=== PATIENT | female | born 1940 | race Caucasian/White ===

== ENCOUNTER 2022-08-13 10:41 | Emergency (ER) | payer OTHER ==
[~2022-08-13] VITALS: Ht 167.6 cm; Wt 90.0 kg
[2022-08-13] MEDS ORDERED: ASPirin 81 mg TAB PO ONE (11:00)
[2022-08-13 11:53] LABS: Bilirubin, Total 0.3 mg/dL (0.2-1.0); Calcium 9.1 mg/dL (8.5-10.1); Potassium 3.9 mmol/L (3.5-5.1); Total Protein 6.8 g/dL (6.4-8.2)
[2022-08-13 11:54] LABS: Albumin 3.4 g/dL (3.4-5.0); Magnesium 2.2 mg/dL (1.6-2.6)
[2022-08-13 12:42] LABS: Basophils # (auto) 0 10 ^3/uL (0-0.2); Eosinophils # (auto) 0.1 10 ^3/uL (0-0.8); Eosinophils % (auto) 1.3 % (0.0-7.0); Hematocrit 41.8 % (36.0-46.0); Hemoglobin 14.2 g/dL (12.2-16.2); Lymphocytes # (auto) 1.1 10 ^3/uL (0.4-5.4); Lymphocytes % (auto) 25.2 % (10.0-50.0); Mean Corpuscular Hemoglobin 32.3 pg (28.0-32.0); Mean Corpuscular Hgb Conc. 33.9 g/dL (32.0-36.0); Mean Corpuscular Volume 95.2 fL (80.0-100.0); Monocytes # (auto) 0.7 10 ^3/uL (0-1.3); Monocytes % (auto) 15.9 % (0.0-12.0); Neutrophils # (auto) 2.4 10 ^3/uL (1.6-8.6); Neutrophils % (auto) 56.6 % (37.0-80.0); Nucleated Red Blood Cells % 0.1 %; Red Blood Cells 4.39 10^6/uL (4.0-5.20); White Blood Cell 4.3 10^3/uL (4.4-10.8)
[2022-08-13 14:01] VITALS: BP 136/64
== END 2022-08-13 14:02 | disposition home or self-care (01) ==
LOC: ER 10:41
DX: R07.89 Other chest pain (principal); I10 Essential (primary) hypertension; Z90.710 Acquired absence of both cervix and uterus; Z90.89 Acquired absence of other organs; Z88.8 Allergy status to other drugs, medicaments and biological substances
CPT/HCPCS: 36415; 71046; 80053; 83735; 83880; 84484; 85025; 85379; 93005

== ENCOUNTER 2023-04-22 12:48 | Emergency (ER) | payer OTHER ==
[~2023-04-22] VITALS: Ht 170.2 cm; Wt 82.0 kg
[2023-04-22 13:56] LABS: Basophils # (auto) 0 10 ^3/uL (0-0.2); Basophils % (auto) 0.5 % (0.0-2.0); Eosinophils # (auto) 0.1 10 ^3/uL (0-0.8); Eosinophils % (auto) 0.8 % (0.0-7.0); Hematocrit 44.6 % (36.0-46.0); Hemoglobin 14.9 g/dL (12.2-16.2); Lymphocytes # (auto) 1.2 10 ^3/uL (0.4-5.4); Lymphocytes % (auto) 14.3 % (10.0-50.0); Mean Corpuscular Hgb Conc. 33.4 g/dL (32.0-36.0); Mean Corpuscular Volume 99.1 fL (80.0-100.0); Monocytes # (auto) 0.8 10 ^3/uL (0-1.3); Monocytes % (auto) 10.2 % (0.0-12.0); Neutrophils # (auto) 6.2 10 ^3/uL (1.6-8.6); Neutrophils % (auto) 74.2 % (37.0-80.0); Nucleated Red Blood Cells % 0.3 %; Red Blood Cells 4.51 10^6/uL (4.0-5.20); White Blood Cell 8.4 10^3/uL (4.4-10.8)
[2023-04-22 14:15] LABS: INR 1.05 (0.9-1.15); Partial Thromboplastin Time 36.9 SEC (24.5-34.5)
[2023-04-22 14:19] LABS: Albumin 3.7 g/dL (3.4-5.0); Calcium 9.6 mg/dL (8.5-10.1); Potassium 4.5 mmol/L (3.5-5.1)
[2023-04-22 14:22] LABS: BUN/Creatinine Ratio 26.4 (10.0-20.0); Bilirubin, Total 0.3 mg/dL (0.2-1.0); Total Protein 7.6 g/dL (6.4-8.2)
[2023-04-22] MEDS ORDERED: HYDROcodone-ACET 10/325MG TAB PO ONE (15:00)
[2023-04-22] MEDS ORDERED: TRAM50TA2 PO (15:04)
[2023-04-22 15:53] VITALS: BP 157/76; PULSE 62; RESP 17; TEMP 97.9; O2SAT 94
== END 2023-04-22 15:55 | disposition home or self-care (01) ==
LOC: EDBD 12:48 → ER 12:48
DX: S09.90XA Unspecified injury of head, initial encounter (principal); M54.59 Other low back pain; I10 Essential (primary) hypertension; Z88.8 Allergy status to other drugs, medicaments and biological substances; Z79.1 Long term (current) use of non-steroidal anti-inflammatories (NSAID); Z90.89 Acquired absence of other organs; Z90.710 Acquired absence of both cervix and uterus; Z98.890 Other specified postprocedural states; W18.39XA Other fall on same level, initial encounter; Y93.89 Activity, other specified; Y92.89 Other specified places as the place of occurrence of the external cause; Y99.8 Other external cause status
CPT/HCPCS: 36415; 70450; 72100; 80053; 85025; 85610; 85730

== ENCOUNTER 2023-04-30 10:23 | Emergency (ER) | payer OTHER ==
[~2023-04-30] VITALS: Ht 167.6 cm; Wt 87.2 kg
[~2023-04-30 10:23] MED LIST: TRAM50TA2 PO
[2023-04-30] MEDS ORDERED: SODIUM CHLORIDE 0.9% 1,000 ML IV ONE (11:15)
[2023-04-30 11:33] LABS: Basophils # (auto) 0 10 ^3/uL (0-0.2); Basophils % (auto) 0.6 % (0.0-2.0); Eosinophils # (auto) 0.1 10 ^3/uL (0-0.8); Eosinophils % (auto) 0.8 % (0.0-7.0); Hematocrit 43.5 % (36.0-46.0); Hemoglobin 14.5 g/dL (12.2-16.2); Lymphocytes # (auto) 1.1 10 ^3/uL (0.4-5.4); Lymphocytes % (auto) 15.4 % (10.0-50.0); Mean Corpuscular Hemoglobin 31.8 pg (28.0-32.0); Mean Corpuscular Hgb Conc. 33.4 g/dL (32.0-36.0); Mean Corpuscular Volume 95.2 fL (80.0-100.0); Monocytes # (auto) 0.7 10 ^3/uL (0-1.3); Monocytes % (auto) 9.7 % (0.0-12.0); Neutrophils # (auto) 5.5 10 ^3/uL (1.6-8.6); Neutrophils % (auto) 73.5 % (37.0-80.0); Nucleated Red Blood Cells % 0.2 %; Red Blood Cells 4.58 10^6/uL (4.0-5.20); Red Cell Distribution Width 14.7 % (11.8-14.3); White Blood Cell 7.4 10^3/uL (4.4-10.8)
[2023-04-30 11:51] LABS: Calcium 9.2 mg/dL (8.5-10.1); Magnesium 2.4 mg/dL (1.6-2.6); Potassium 4.4 mmol/L (3.5-5.1)
[2023-04-30 11:54] LABS: Albumin 3.6 g/dL (3.4-5.0)
[2023-04-30 11:57] LABS: BUN/Creatinine Ratio 26.5 (10.0-20.0); Bilirubin, Total 0.4 mg/dL (0.2-1.0); Total Protein 6.8 g/dL (6.4-8.2)
[2023-04-30 12:17] LABS: INR 1.08 (0.9-1.15); Partial Thromboplastin Time 35.2 SEC (24.5-34.5); Prothrombin Time 11.3 sec (9.3-11.8)
[2023-04-30] MEDS: METOPROLOL TARTRATE 1MG/1ML-5ML VIAL IV SCH ×3 (13:30→13:40)
[2023-04-30 14:01] VITALS: BP 140/62; TEMP 98.3
[2023-04-30 15:51] VITALS: PULSE 68; RESP 18; O2SAT 96
== END 2023-04-30 16:30 | disposition home or self-care (01) ==
LOC: ER 10:23 → EDBD 10:23 → ER 16:12
DX: R00.2 Palpitations (principal); I48.91 Unspecified atrial fibrillation; K21.9 Gastro-esophageal reflux disease without esophagitis; I10 Essential (primary) hypertension; Z88.8 Allergy status to other drugs, medicaments and biological substances; Z90.710 Acquired absence of both cervix and uterus; Z90.89 Acquired absence of other organs; Z88.7 Allergy status to serum and vaccine
CPT/HCPCS: 36415; 71045; 80053; 83735; 83880; 84443; 84484; 85025; 85379; 85610; 85730; 93005; 96361; 96374; 99285; J7030

== ENCOUNTER 2023-05-10 17:05 | Emergency (ER) | payer OTHER ==
[~2023-05-10] VITALS: Ht 167.6 cm; Wt 86.3 kg
[2023-05-10 17:41] LABS: Basophils # (auto) 0.1 10 ^3/uL (0-0.2); Basophils % (auto) 0.7 % (0.0-2.0); Eosinophils # (auto) 0.1 10 ^3/uL (0-0.8); Eosinophils % (auto) 1.9 % (0.0-7.0); Hematocrit 44.8 % (36.0-46.0); Lymphocytes % (auto) 26.5 % (10.0-50.0); Mean Corpuscular Hemoglobin 31.6 pg (28.0-32.0); Mean Corpuscular Hgb Conc. 33.5 g/dL (32.0-36.0); Mean Corpuscular Volume 94.3 fL (80.0-100.0); Monocytes # (auto) 0.7 10 ^3/uL (0-1.3); Monocytes % (auto) 9.7 % (0.0-12.0); Neutrophils # (auto) 4.7 10 ^3/uL (1.6-8.6); Neutrophils % (auto) 61.2 % (37.0-80.0); Nucleated Red Blood Cells % 0.1 %; Red Blood Cells 4.75 10^6/uL (4.0-5.20); Red Cell Distribution Width 14.7 % (11.8-14.3); White Blood Cell 7.6 10^3/uL (4.4-10.8)
[2023-05-10 18:00] LABS: Alanine Aminotransferase 22 U/L (7-40); Albumin 4.5 g/dL (3.2-4.8); Alkaline Phosphatase 112 U/L (46-116); Anion Gap 4.3 (5-15); Blood Urea Nitrogen 29 mg/dL (9-23); Calcium 10.3 mg/dL (8.5-10.1); Carbon Dioxide 27.7 mmol/L (20-30); Chloride 106 mmol/L (98-107); Glucose 100 mg/dL (74-106); Magnesium 2.2 mg/dL (1.6-2.6); Potassium 4.2 mmol/L (3.5-5.1); Sodium 138 mmol/L (136-145)
[2023-05-10 18:01] LABS: Aspartate Aminotransferase 16 U/L (13-40); Bilirubin, Total 0.5 mg/dL (0.2-1.0); Total Protein 7.2 g/dL (5.7-8.2)
[2023-05-10 19:45] LABS: Urine Bacteria FEW /hpf (None Seen); Urine Blood Negative /uL (Negative); Urine Clarity Clear (Clear); Urine Color Colorless (Yellow); Urine Protein, UAD 1+ (Negative); Urine Specific Gravity 1.006 (1.001-1.035); Urine Urobilinogen Normal (Negative); Urine WBC <1 /hpf (0 - 5); Urine pH 7.5 (5.0-8.0)
[2023-05-10 21:03] VITALS: BP 126/77; TEMP 97.8
[2023-05-10 21:06] VITALS: PULSE 63; RESP 18; O2SAT 95
== END 2023-05-10 22:28 | disposition home or self-care (01) ==
LOC: ER 17:05
DX: R00.2 Palpitations (principal); K21.9 Gastro-esophageal reflux disease without esophagitis; I10 Essential (primary) hypertension; Z90.710 Acquired absence of both cervix and uterus; Z88.1 Allergy status to other antibiotic agents; Z88.6 Allergy status to analgesic agent
CPT/HCPCS: 36415; 71045; 80053; 81001; 83735; 84484; 85025; 93005

== ENCOUNTER 2025-05-08 08:04 | Emergency (ER) | payer OTHER ==
[~2025-05-08] VITALS: Ht 167.6 cm; Wt 92.1 kg
--- NOTE | 2025-05-08 08:43 | ECG ---
[facility] Test Date: 2025-05-08 Test Time: 08:18:06 Pat Name: ADILSON DIAZ Department: ED Room: Gender: F Powder Hand: HEENA : 1940 Requested By: XAVIER MUELLER Order Number: [id number] Reading MD: Naresh Bynum Measurements Intervals [place] Rate: 60 P: 0 NH: 191 QRS: 254 QRSD: 152 T: 94 QT: 492 QTc: 492 Interpretive Statements Atrial-paced rhythm Left bundle branch block Electronically Signed On 05-08-2025 22:32:41 PDT by Naresh Bynum Please click the below link to view image of tracing.
--- NOTE | 2025-05-08 09:31 | ED.PDOC ---
SOB-HPI HPI Comments This is a 84 year old female presenting to the ED with chief complaint of SOB. Patient reports that she has been experiencing worsening SOB with associated cough and wheezing over the past 2 weeks. Patient relays that she has jo ann using her O2 at home due to her SOB more often. Patient states her symptoms started after having an angiogram performed 2 weeks ago prior to symptom onset, but the results showed no blockages in her heart. Patient denies any sick contacts, fever, chills, chest pain, dizziness, headache, or hemoptysis. Chief Complaint: Shortness of Breath Time Seen by MD: 09:29 Primary Care Provider: AKILAH Galeas notes: Nurses Notes, Medications, Allergies Information Source: Patient, Spouse Mode of Arrival: Ambulatory Severity: Moderate Timing: Weeks Duration: Since onset Context: At Rest PE Risk Factors: None History of: Asthma, COPD, CHF Prehospital treatment: None Modifying Factors: Nothing Associated Signs and Symptoms: Cough If cough with SOB: Non-Productive Past Medical History PAST MEDICAL HISTORY: AFIB, Asthma, Cancer, CHF, COPD, GERD, HTN, Thyroid Surgical History: Hernia Repair, Hysterectomy, Tonsillectomy [employer] History: Denies all [employer] Hx Family History Family History: Reviewed,noncontributory to illness, Family hx of DM, Family hx of Cancer, Family hx of heart [place] Social History Smoker: Non-Smoker Alcohol: Denies ETOH Use Drugs: Denies Drug Use Lives In: Home Constitutional: denies: chills, diaphoresis, fatigue, fever, malaise, sweats, weakness, others EENTM: denies: blurred vision, double vision, ear bleeding, ear discharge, ear drainage, ear pain, ear ringing, eye pain, eye redness, hearing loss, mouth pain, mouth swelling, nasal discharge, nose bleeding, nose congestion, nose pain, photophobia, tearing, throat pain, throat swelling, voice changes, others Respiratory: reports: cough, shortness of breath; denies: hemoptysis, orthopnea, SOB at rest, SOB with excertion, stridor, wheezing, others Cardiovascular: denies: chest pain, dizzy spells, diaphoresis, Dyspnea on exertion, edema, irregular heart beat, left arm pain, lightheadedness, palpitations, PND, syncope, others Gastrointestinal: denies: abdomen distended, abdominal pain, blood streaked bowels, constipated, diarrhea, dysphagia, difficulty swallowing, hematemesis, melena, nausea, poor appetite, poor fluid intake, rectal bleeding, rectal pain, vomiting, others Genitourinary: denies: abnormal vagina bleeding, burning, dyspareunia, dysuria, flank pain, frequency, hematuria, incontinence, pain, , vagina discharge, urgency, others Neurological: denies: dizziness, fainting, headache, left sided numbness, left sided weakness, numbness, paresthesia, pre-existing deficit, right sided numbness, right sided weakness, seizure, speech problems, tingling, tremors, weakness, others Musculoskeletal: denies: back pain, gout, joint pain, joint swelling, muscle pain, muscle stiffness, neck pain, others Integumetry: denies: bruises, change in color, change in hair/nails, dryness, laceration, lesions, lumps, rash, wounds, others Allergic/Immunocompromised: denies: Difficulty Healing, Frequent Infections, Hives, Itching, others Hematologic/Lymphatic: denies: anemia, blood clots, easy bleeding, easy bruising, swollen glands, others Endocrine: denies: excessive hunger, excessive sweating, excessive thirst, excessive urination, flushing, intolerance to cold, intolerance to heat, unexplained weight gain, unexplained weight loss, others Psychiatric: denies: anxiety, bipolar disorder, depression, hopeless, panic disorder, schizophrenia, sleepless, suicidal, others All Other Systems: Reviewed and Negative Physical Exam General Appearance: Mild Distress, Normal HEENT: Normal ENT Inspection, Pharynx Normal, TMs Normal Neck: Full Range of Motion, Non-Tender, Normal, Normal Inspection Respiratory: Chest Non-Tender, Lungs Clear, No Accessory Muscle Use, No Respiratory Distress, Normal Breath Sounds, Other (Patient O2 and not in acute respiratory distress but at night she is wheezing) Cardiovascular: No Edema, No JVD, No Murmur, No Gallop, Normal Peripheral Pulses, Regular Rate/Rhythm Breast Exam: Deferred Gastrointestinal: No Organomegaly, Non Tender, No Pulsatile Mass, Normal Bowel Sounds, Soft Genitalia: Deferred Pelvic: Deferred Rectal: Deferred Extremities: No calf tenderness, Normal capillary refill, Normal inspection, Normal range of motion, Non-tender, No pedal edema Neurologic: Alert, production floater II-XII nml as Tested, No Motor Deficits, Normal Affect, Normal Mood, No Sensory Deficits Cerebellar Function: Normal Reflexes: Normal Skin: Dry, Normal Color, Warm Peripheral Pulses: 1+ carotid (R), 1+ carotid (L) Lymphatic: Axilla Node Tender (L) EKG EKG : Pulse Rate (adult): 60 Cardiac Rhythm: Paced Was a procedure done? Was a procedure done?: No Differential Dx Differential Diagnosis: Asthma, Bronchitis, CHF, COPD, Pneumonia, URI X-Ray, Labs, Meds, VS Vital Signs Date Time Temp Pulse Resp B/P (MAP) Pulse Ox O2 Delivery O2 Flow Rate FiO2 05/08/25 14:00 60 12 152/71 (98) 93 05/08/25 13:27 60 13 152/71 (98) 94 05/08/25 12:00 60 05/08/25 12:00 60 13 142/71 (94) 90 05/08/25 11:30 60 16 92 Nasal Cannula* 3 32 05/08/25 11:30 97.7 60 16 148/73 (98) 92 97.7 05/08/25 10:54 98.3 60 18 142/72 (95) 97 98.3 05/08/25 10:17 74 18 93 Nasal Cannula* 3 32 05/08/25 09:49 60 05/08/25 09:42 20 96 Nasal Cannula* 3 32 05/08/25 08:45 61 18 138/77 (97) 95 05/08/25 08:18 60 05/08/25 08:06 92.0 92 20 148/72 60 92.0 Lab Test 05/08/25 11:28 05/08/25 09:43 Range/Units Urine Color Light-yellow Yellow Urine Clarity Clear Clear Urine pH 7.5 5.0-9.0 Urine Specific [place] 1.011 1.001-1.035 Urine Protein Negative Negative Urine Ketones Negative Negative Urine Blood Negative Negative /uL Urine Nitrite Negative Negative Urine Bilirubin Negative Negative Urine Urobilinogen Normal Negative mg/dL Urine Leukocyte Esterase Negative Negative /uL Urine RBC None seen 0 - 4 /hpf Urine Microscopic WBC 1 0-5 /HPF Urine Squamous Epithelial Cells None seen <5 /hpf Urine Bacteria None seen None Seen /hpf Urine Glucose 4+ H Normal mg/dL White Blood Count 8.0 4.4-10.8 10^3/uL Red Blood Count 4.26 4.0-5.20 10^6/uL Hemoglobin 13.4 12.2-16.2 g/dL Hematocrit 40.2 36.0-46.0 % Mean Corpuscular Volume 94.3 80.0-100.0 fL Mean Corpuscular Hemoglobin 31.4 28.0-32.0 pg Mean Corpuscular Hemoglobin Concent 33.3 32.0-36.0 g/dL Red Cell Distribution Width 15.7 H 11.8-14.3 % Platelet Count 325 140-450 10^3/uL Mean Platelet Volume 7.6 6.9-10.8 fL Neutrophils (%) (Auto) 83.0 H 37.0-80.0 % Lymphocytes (%) (Auto) 8.0 L 10.0-50.0 % Monocytes (%) (Auto) 8.3 0.0-12.0 % Eosinophils (%) (Auto) 0.3 0.0-7.0 % Basophils (%) (Auto) 0.4 0.0-2.0 % Neutrophils # (Auto) 6.7 1.6-8.6 10 ^3/uL Lymphocytes # (Auto) 0.6 0.4-5.4 10 ^3/uL Monocytes # (Auto) 0.7 0-1.3 10 ^3/uL Eosinophils # (Auto) 0 0-0.8 10 ^3/uL Basophils # (Auto) 0 0-0.2 10 ^3/uL Nucleated Red Blood Cells 0.1 % Sodium Level 138 136-145 mmol/L Potassium Level 4.3 3.5-5.1 mmol/L Chloride Level 105 98-107 mmol/L Carbon Dioxide Level 23 20-31 mmol/L Anion Gap 10 5-15 Blood Urea Nitrogen 16 9-23 mg/dL Creatinine 1.24 H 0.550-1.02 mg/dL Glomerular Filtration Rate Calc 42 >90 mL/min BUN/Creatinine Ratio 12.9 10.0-20.0 Serum Glucose 99 74-106 mg/dL Calcium Level 9.8 8.7-10.4 mg/dL Magnesium Level 2.4 1.6-2.6 mg/dL Total Bilirubin 0.7 0.2-1.0 mg/dL Aspartate Amino Transferase (AST) 24 13-40 U/L Alanine Aminotransferase (ALT) 15 7-40 U/L Alkaline Phosphatase 58 46-116 U/L Total Protein 7.0 5.7-8.2 g/dL Albumin 4.3 3.2-4.8 g/dL Current Medications Medications (Trade) Dose Ordered Sig/Jacque Route Start Time Stop Time Status Last Admin Albuterol (Ventolin Medneb) 5 mg ONCE ONCE NEB 05/08/25 09:15 05/08/25 09:19 DC 05/08/25 09:41 Ipratropium [place] (Atrovent Medneb) 0.5 mg ONCE ONCE NEB 05/08/25 09:15 05/08/25 09:19 DC 05/08/25 09:41 [place] [id number] Ph: [phone] DIAGNOSTIC IMAGING Diagnostic Imaging Report : [id number] Signed PATIENT: ADILSON DIAZ ACCT: [id number] UNIT: [id number] : 1940 LOC: ER ROOM / BED: / AGE / SEX: 84 / F ADM STATUS: REG ER SERVICE 4 ORDERING PHYSICIAN: XAVIER MUELLER MD PROCEDURE(s): CXR2 - CHEST TWO VIEWS ROUTINE REASON: sob ORDER NUMBER(s): [id number], ACCESSION NUMBER(s): [id number] XY CHEST TWO VIEWS ROUTINE CLINICAL HISTORY: "sob" 84 years old, Female; sob. COMPARISON: None TECHNIQUE: Frontal and lateral view of the chest was obtained FINDINGS: Lines and Tubes: Dual lead left-sided pacemaker Lungs: No focal consolidation. Pleura: Small bilateral pleural effusions. Cardiomediastinal contours: Unremarkable Bones: No acute osseous abnormality. IMPRESSION: Cardiomegaly with CHF ATED BY: ARRON CAIN MD DICTATED DATE/TIME: 05/08/25 1002 SIGNED BY: ARRON CAIN MD SIGNED DATE/TIME: 05/08/25 1002 CC: X-Ray, Labs, Meds, VS Comment Course in the emergency department eventful patient came in with a blood pressure 148/72 and a pulse ox of -88 she is 84 years old the chest x-ray shows cardiomegal CHshe has a pacemaker EKG is paced at 60 CBC 8000 with 83% neutrophils and normal H&H CMP GFR at 42 Magnesium 2.4 Patient will be discharged home to follow up with her PCP at [place] She feels better and garlic she does not want to be in hospital I reviewed the chest x-ray again she has a very mild cardiomegaly with pulmonary vascular congestion upon re-evaluation patient is clear after receiving a med neb Images Reviewed?: Images reviewed and evaluated by me Time of 1ST Reevaluation: 10:17 Reevaluation 1ST: Unchanged Time of 2ND Reevaluation: 11:36 Reevaluation 2ND: Unchanged Patient Education/Counseling: Diagnosis, Treatment, Prognosis Family Education/Counseling: Diagnosis, Treatment, Prognosis, No Family Present Assigned to Need to follow up with your PCP at [place] SEPSIS Sepsis Screen Date sepsis recognized/suspect: May 08, 2025 Time Sepsis recognized/suspect: 803 Recent Procedure: No On Antibiotic Therapy: No Respiratory Rate >20: No Heart Rate >90: No Temp<36 C (96.8 F) or >38.3 C: No SBP <90 or MAP <65 mmHG: No New Acute Mental Status Change: No Is the patient on CPAP, BIPAP,: No Physician Orders Heplock Iv (05/08/25 09:15) Blood Pressure (05/08/25 09:15) Oxygen (05/08/25 09:15) Pulse Oximetry (05/08/25 09:15) Chest Two Views Routine (05/08/25 09:15) Sodium Chloride 0.9% (05/08/25 09:15) Vital Signs Date Time Temp Pulse Resp B/P (MAP) Pulse Ox O2 Delivery O2 Flow Rate FiO2 05/08/25 14:00 60 12 152/71 (98) 93 05/08/25 13:27 60 13 152/71 (98) 94 05/08/25 12:00 60 05/08/25 12:00 60 13 142/71 (94) 90 05/08/25 11:30 60 16 92 Nasal Cannula* 3 32 05/08/25 11:30 97.7 60 16 148/73 (98) 92 97.7 05/08/25 10:54 98.3 60 18 142/72 (95) 97 98.3 05/08/25 10:17 74 18 93 Nasal Cannula* 3 32 05/08/25 09:49 60 05/08/25 09:42 20 96 Nasal Cannula* 3 32 05/08/25 08:45 61 18 138/77 (97) 95 05/08/25 08:18 60 05/08/25 08:06 92.0 92 20 148/72 60 92.0 Laboratory Tests Test 05/08/25 09:43 White Blood Count 8.0 10^3/uL (4.4-10.8) Medications Medications Dose Ordered Sig/Jacque Route Start Time Stop Time Status Last Admin Dose Admin Albuterol 5 mg ONCE ONCE NEB 05/08/25 09:15 05/08/25 09:19 DC 05/08/25 09:41 Ipratropium [place] 0.5 mg ONCE ONCE [facility] 05/08/25 09:15 05/08/25 09:19 DC 05/08/25 09:41 Departure 1 Departure Time of Disposition: 14:11 Impression: Primary Impression: Shortness of breath Additional Impressions: CKD (chronic kidney disease) stage 3, GFR 30-59 ml/min Qualified Codes: N18.32 - Chronic kidney disease, stage 3b Pulmonary vascular congestion Disposition: HOME / SELF CARE / HOMELESS Admit to: Tele Condition: Fair Additional Instructions: Follow up with your PCP at [place] e-Prescriptions Spironolactone (Aldactone) 50 Mg Tab 1 TAB PO DAILY, #30 TAB 3 Refills Prov: XAVIER MUELLER MD 05/08/25 Furosemide (Lasix) 40 Mg Tab 40 MG PO DAILY PRN for 5 Days, #5 TAB Prov: XAVIER MUELLER MD 05/08/25 Discharged With: Self Critical Care Note Critical Care Time?: No Stability Stability form required: No Heart Score Heart Score: Heart Score Response (Comments) Value History Moderate Suspicious 1 EKG Repolarization Disturb 1 Age >65 2 Risk Factors >3 or Hx ASHD 2 Troponin 1-2 x's Normal limit 1 Total 7 I personally scribed for XAVIER MUELLER MD ([email or web address]) on 05/08/25 at 09:31. Electronically submitted by Sathya Pete ([email or web address]). I personally scribed for XAVIER MUELLER MD ([email or web address]) on 05/08/25 at 10:12. Electronically submitted by Sathya Pete ([email or web address]). XAVIER MUELLER MD May 08, 2025 09:31
[2025-05-08] MEDS: ALBUTEROL SULF 2.5 MG/0.5ML(0.5%) NEB SOLN NEB ONE (09:41)
[2025-05-08] MEDS: IPRATROPIUM BROM 0.5 MG/2.5ML INH SOL NEB ONE (09:41)
[2025-05-08 10:01] LABS: Hematocrit 40.2 % (36.0-46.0); Hemoglobin 13.4 g/dL (12.2-16.2); Mean Corpuscular Hemoglobin 31.4 pg (28.0-32.0); Mean Corpuscular Volume 94.3 fL (80.0-100.0); Nucleated Red Blood Cells % 0.1 %
--- NOTE | 2025-05-08 10:05 | DVH ---
XY CHEST TWO VIEWS ROUTINE CLINICAL HISTORY: "sob" 84 years old, Female; sob. COMPARISON: None TECHNIQUE: Frontal and lateral view of the chest was obtained FINDINGS: Lines and Tubes: Dual lead left-sided pacemaker Lungs: No focal consolidation. Pleura: Small bilateral pleural effusions. Cardiomediastinal contours: Unremarkable Bones: No acute osseous abnormality. IMPRESSION: Cardiomegaly with CHF
[2025-05-08 10:10] LABS: Alanine Aminotransferase 15 U/L (7-40); Albumin 4.3 g/dL (3.2-4.8); Alkaline Phosphatase 58 U/L (46-116); Anion Gap 10 (5-15); BUN/Creatinine Ratio 12.9 (10.0-20.0); Bilirubin, Total 0.7 mg/dL (0.2-1.0); Blood Urea Nitrogen 16 mg/dL (9-23); Calcium 9.8 mg/dL (8.7-10.4); Carbon Dioxide 23 mmol/L (20-31); Chloride 105 mmol/L (98-107); Glucose 99 mg/dL (74-106); Magnesium 2.4 mg/dL (1.6-2.6); Potassium 4.3 mmol/L (3.5-5.1); Sodium 138 mmol/L (136-145); Total Protein 7.0 g/dL (5.7-8.2)
[2025-05-08 10:17] VITALS: PULSE 74; RESP 18; O2SAT 93
[2025-05-08] MEDS: SODIUM CHLORIDE 0.9% 1,000 ML IV ONE (10:17)
[2025-05-08 11:30] VITALS: PULSE 60; RESP 16; TEMP 97.7; O2SAT 92
[2025-05-08 11:45] LABS: Urine Protein, UAD Negative (Negative)
[2025-05-08 13:27] VITALS: PULSE 60; RESP 13; O2SAT 94
[2025-05-08 14:00] VITALS: BP 152/71; PULSE 60; RESP 12; O2SAT 93
[2025-05-08] MEDS ORDERED: SPIR50TA2 PO (14:13)
[2025-05-08] MEDS ORDERED: FURO1TAB31 PO (14:13)
== END 2025-05-08 15:00 | disposition home or self-care (01) ==
LOC: ER 08:04
DX: I13.0 Hypertensive heart and chronic kidney disease with heart failure and stage 1 through stage 4 chronic kidney disease, or unspecified chronic kidney disease (principal); I50.9 Heart failure, unspecified; N18.32 Chronic kidney disease, stage 3b; R06.02 Shortness of breath; Z98.890 Other specified postprocedural states; Z95.0 Presence of cardiac pacemaker; Z90.710 Acquired absence of both cervix and uterus
CPT/HCPCS: 36415; 71046; 80053; 81001; 83735; 85025; 93005; 94640